=== PATIENT | male | born 1960 | race Caucasian/White ===

== ENCOUNTER 2021-08-28 05:51 | Inpatient (IN) | payer OTHER ==
[2021-08-28] VITALS (12 sets, daily range): BP systolic 94–139; BP diastolic 54–80
[~2021-08-28] VITALS: Ht 190.5 cm; Wt 116.3 kg
[2021-08-28] MEDS ORDERED: RINGERS SOLUTION,LACTATED 1,000 ML IV ONE ×3 (06:26→12:29)
[2021-08-28 06:41] LABS: COVID AG,FIA SOURCE NASOPHARYNGEAL
[2021-08-28 07:10] LABS: BASOPHILS % (AUTO) 1.3 % (0.0-2.0); EOSINOPHILS % (AUTO) 3.2 % (1.0-6.0); HEMATOCRIT 29.7 % (41-53); HEMOGLOBIN 9.6 g/dL (13.5-17.5); LYMPHOCYTES # (AUTO) 0.6 K/uL (1.0-4.8); LYMPHOCYTES % (AUTO) 12.4 % (22.0-44.0); MEAN CORPUSCULAR HEMOGLOBIN 25.6 pg (26.0-34.0); MEAN CORPUSCULAR HGB CONC 32.3 G/dL (31.0-37.0); MEAN CORPUSCULAR VOLUME 79 fL (80-100); MONOCYTES # (AUTO) 0.6 K/uL (0.1-1.0); NEUTROPHILS # (AUTO) 3.8 K/uL (1.8-7.7); NEUTROPHILS % (AUTO) 72.1 % (40.0-70.0); PLATELET COUNT (AUTO) 252 K/uL (150-450); RED BLOOD CELL COUNT(AUTO) 3.75 MIL/uL (4.50-5.90)
[2021-08-28 07:15] LABS: ANION GAP 6 mmol/L (8-16); CALCIUM, TOTAL 8.3 mg/dL (8.8-10.5); CARBON DIOXIDE 28 mmol/L (22-29); CHLORIDE 108 mmol/L (98-107); CREATININE 0.97 mg/dL (0.60-1.30); GLOMERULAR FILTR. RATE CALC > 60 mL/min (>60); GLUCOSE,RANDOM 111 mg/dL (70-110); POTASSIUM 3.9 mmol/L (3.5-5.1); SODIUM SERUM 142 mmol/L (136-145); UREA NITROGEN, BLOOD 13 mg/dL (7-18)
[2021-08-28 07:22] LABS: ALANINE AMINOTRANSFERASE 19 U/L (12-78); ALBUMIN 3.4 g/dL (3.4-5.0); ALKALINE PHOSPHATASE 43 U/L (46-116); ASPARTATE AMINOTRANSFERASE 12 U/L (15-37); BILIRUBIN,TOTAL 0.4 mg/dL (0.1-1.0); TOTAL PROTEIN, SERUM 6.8 g/dL (6.4-8.2)
[2021-08-28 07:23] LABS: PROTHROMBIN TIME 10.9 SEC (9.4-11.6)
[2021-08-28] MEDS ORDERED: SODIUM CHLORIDE 0.9% 500 ML IV ONE (07:48)
[2021-08-28] MEDS ORDERED: CeFAZolin 2 GM/DEXTROSE 50 ML IV ONE (09:30)
[2021-08-28] MEDS ORDERED: SORBITOL IRRIGATION 9,000 ML IRRIG ONE (10:24)
[2021-08-28] MEDS ORDERED: OPIUM/BELLADONNA ALK 60 MG-16.2 MG RECTAL SUPPOSITORY PR ONE (11:00)
[2021-08-28] MEDS ORDERED: HYDROCODONE/ACETAMINOPHEN 10-325 MG TABLET PO ONE (11:30)
[2021-08-28] MEDS ORDERED: HYDROmorphone 2 MG/ML VIAL IVP PRN ×2 (11:30→12:00)
[2021-08-28] MEDS ORDERED: SODIUM CL IRRIG SOLN BAG 6,000 ML IRRIG ONE (11:45)
[2021-08-28] MEDS ORDERED: MEPERIDINE-PF 25 MG/ML VIAL IVP PRN (12:00)
[2021-08-28] MEDS ORDERED: FentaNYL CITRATE PF 100 MCG/2 ML VIAL IVP PRN (12:00)
[2021-08-28 13:54] LABS: BASOPHILS % (AUTO) 0.3 % (0.0-2.0); EOSINOPHILS % (AUTO) 0.1 % (1.0-6.0); HEMATOCRIT 30.8 % (41-53); HEMOGLOBIN 9.8 g/dL (13.5-17.5); LYMPHOCYTES # (AUTO) 0.5 K/uL (1.0-4.8); MEAN CORPUSCULAR HGB CONC 31.7 G/dL (31.0-37.0); MEAN CORPUSCULAR VOLUME 82 fL (80-100); MONOCYTES # (AUTO) 0.8 K/uL (0.1-1.0); NEUTROPHILS # (AUTO) 12.4 K/uL (1.8-7.7); PLATELET COUNT (AUTO) 243 K/uL (150-450); RED BLOOD CELL COUNT(AUTO) 3.75 MIL/uL (4.50-5.90); RED CELL DISTRIBUTION WIDTH 16.2 % (11.5-14.5)
[2021-08-28 13:56] LABS: NEUTROPHILS % (AUTO) 89.6 % (40.0-70.0)
[2021-08-28 18:46] LABS: BASOPHILS % (AUTO) 0.3 % (0.0-2.0); EOSINOPHILS % (AUTO) 0.1 % (1.0-6.0); HEMATOCRIT 28.8 % (41-53); HEMOGLOBIN 9.2 g/dL (13.5-17.5); LYMPHOCYTES # (AUTO) 0.7 K/uL (1.0-4.8); LYMPHOCYTES % (AUTO) 4.4 % (22.0-44.0); MEAN CORPUSCULAR HGB CONC 32.1 G/dL (31.0-37.0); MEAN CORPUSCULAR VOLUME 81 fL (80-100); MONOCYTES # (AUTO) 1.1 K/uL (0.1-1.0); MONOCYTES % (AUTO) 7.6 % (2.0-9.0); NEUTROPHILS # (AUTO) 13.2 K/uL (1.8-7.7); PLATELET COUNT (AUTO) 239 K/uL (150-450); RED BLOOD CELL COUNT(AUTO) 3.55 MIL/uL (4.50-5.90); RED CELL DISTRIBUTION WIDTH 16.4 % (11.5-14.5)
[2021-08-28 19:04] LABS: NEUTROPHILS % (AUTO) 87.6 % (40.0-70.0)
[2021-08-28] MEDS: HYDROCODONE/ACETAMINOPHEN 10-325 MG TABLET PO PRN (19:28)
[2021-08-29 04:00] VITALS: BP 130/72
[2021-08-29] MEDS ORDERED: PROPOFOL 1% 20 ML VIAL IVP ONE (05:33)
[2021-08-29] MEDS ORDERED: HYDROmorphone 2 MG/ML VIAL IVP ONE (05:33)
[2021-08-29] MEDS ORDERED: ROCURONIUM BROMIDE 10 MG/ML 5 ML VIAL IVP ONE (05:33)
[2021-08-29] MEDS ORDERED: SUCCINYLCHOLINE CHLORIDE 20 MG/ML 10 ML VIAL IVP ONE (05:33)
[2021-08-29] MEDS ORDERED: MIDAZOLAM HCL 2 MG/2 ML VIAL IVP ONE (05:33)
[2021-08-29] MEDS ORDERED: FentaNYL CITRATE PF 100 MCG/2 ML VIAL IVP ONE (05:33)
[2021-08-29] MEDS ORDERED: LIDOCAINE/PF 2% 5 ML VIAL IM ONE (05:33)
[2021-08-29] MEDS ORDERED: ONDANSETRON HCL 4 MG/2 ML VIAL IVP ONE (05:33)
[2021-08-29 07:38] VITALS: BP 129/68
[2021-08-29] MEDS: OXYGEN THERAPY IH SCH ×2 (08:00→20:00)
[2021-08-29] MEDS: LISINOPRIL 5 MG TABLET PO SCH (08:22)
[2021-08-29 09:33] LABS: BASOPHILS % (AUTO) 0.6 % (0.0-2.0); EOSINOPHILS % (AUTO) 1.1 % (1.0-6.0); HEMATOCRIT 25.9 % (41-53); HEMOGLOBIN 8.5 g/dL (13.5-17.5); LYMPHOCYTES # (AUTO) 0.8 K/uL (1.0-4.8); LYMPHOCYTES % (AUTO) 7.5 % (22.0-44.0); MEAN CORPUSCULAR HEMOGLOBIN 26.6 pg (26.0-34.0); MEAN CORPUSCULAR HGB CONC 32.8 G/dL (31.0-37.0); MEAN CORPUSCULAR VOLUME 81 fL (80-100); MONOCYTES # (AUTO) 0.9 K/uL (0.1-1.0); MONOCYTES % (AUTO) 8.8 % (2.0-9.0); NEUTROPHILS # (AUTO) 8.5 K/uL (1.8-7.7); PLATELET COUNT (AUTO) 222 K/uL (150-450); RED CELL DISTRIBUTION WIDTH 16.4 % (11.5-14.5)
[2021-08-29 09:44] LABS: CREATININE 1.24 mg/dL (0.60-1.30); POTASSIUM 3.8 mmol/L (3.5-5.1)
[2021-08-29 19:48] VITALS: BP 144/70
[2021-08-29] MEDS: HYDROCODONE/ACETAMINOPHEN 10-325 MG TABLET PO PRN (20:36)
[2021-08-30 04:10] VITALS: BP 133/67
[2021-08-30] MEDS ORDERED: SODIUM CHLORIDE 0.9% IRRIG BTL 1,000 ML IRRIG ONE (07:01)
[2021-08-30 07:33] VITALS: BP 142/78
[2021-08-30] MEDS: OXYGEN THERAPY IH SCH (08:00)
[2021-08-30] MEDS: LISINOPRIL 5 MG TABLET PO SCH (08:20)
[2021-08-30 08:34] LABS: BASOPHILS % (AUTO) 0.6 % (0.0-2.0); EOSINOPHILS % (AUTO) 3.2 % (1.0-6.0); HEMOGLOBIN 7.9 g/dL (13.5-17.5); LYMPHOCYTES # (AUTO) 0.6 K/uL (1.0-4.8); LYMPHOCYTES % (AUTO) 7.1 % (22.0-44.0); MEAN CORPUSCULAR HEMOGLOBIN 25.8 pg (26.0-34.0); MEAN CORPUSCULAR HGB CONC 31.6 G/dL (31.0-37.0); MEAN CORPUSCULAR VOLUME 82 fL (80-100); MONOCYTES # (AUTO) 0.7 K/uL (0.1-1.0); MONOCYTES % (AUTO) 8.7 % (2.0-9.0); NEUTROPHILS # (AUTO) 6.9 K/uL (1.8-7.7); NEUTROPHILS % (AUTO) 80.4 % (40.0-70.0); PLATELET COUNT (AUTO) 200 K/uL (150-450); RED BLOOD CELL COUNT(AUTO) 3.05 MIL/uL (4.50-5.90); RED CELL DISTRIBUTION WIDTH 16.5 % (11.5-14.5)
[2021-08-30 08:44] LABS: ANION GAP 5 mmol/L (8-16); CALCIUM, TOTAL 7.8 mg/dL (8.8-10.5); CARBON DIOXIDE 29 mmol/L (22-29); CHLORIDE 110 mmol/L (98-107); CREATININE 0.95 mg/dL (0.60-1.30); GLOMERULAR FILTR. RATE CALC > 60 mL/min (>60); GLUCOSE,RANDOM 132 mg/dL (70-110); POTASSIUM 3.6 mmol/L (3.5-5.1); SODIUM SERUM 144 mmol/L (136-145); UREA NITROGEN, BLOOD 8 mg/dL (7-18)
[2021-08-30] MEDS ORDERED: DIATRIZOATE MEGLUMINE UR ONE (09:30)
[2021-08-30 15:13] VITALS: BP 138/74
[2021-08-30] MEDS: FAMOTIDINE 20 MG TABLET PO SCH (20:15)
[2021-08-30] MEDS: DOCUSATE SODIUM 100 MG CAPSULE PO SCH (20:15)
[2021-08-30] MEDS: HYDROCODONE/ACETAMINOPHEN 10-325 MG TABLET PO PRN (20:16)
[2021-08-30 20:26] VITALS: BP 147/68
[2021-08-31 05:14] VITALS: BP 141/80
[2021-08-31] MEDS: OXYGEN THERAPY IH SCH ×2 (08:00→21:11)
[2021-08-31] MEDS: FAMOTIDINE 20 MG TABLET PO SCH ×2 (08:43→21:12)
[2021-08-31] MEDS: LISINOPRIL 5 MG TABLET PO SCH (08:43)
[2021-08-31] MEDS: DOCUSATE SODIUM 100 MG CAPSULE PO SCH ×2 (08:43→21:00)
[2021-08-31 09:28] VITALS: BP 145/76
[2021-08-31 12:14] LABS: BASOPHILS % (AUTO) 0.8 % (0.0-2.0); EOSINOPHILS % (AUTO) 4.5 % (1.0-6.0); HEMATOCRIT 24.7 % (41-53); HEMOGLOBIN 7.9 g/dL (13.5-17.5); LYMPHOCYTES # (AUTO) 0.7 K/uL (1.0-4.8); LYMPHOCYTES % (AUTO) 8.4 % (22.0-44.0); MEAN CORPUSCULAR HEMOGLOBIN 26.3 pg (26.0-34.0); MEAN CORPUSCULAR HGB CONC 32.2 G/dL (31.0-37.0); MEAN CORPUSCULAR VOLUME 82 fL (80-100); MONOCYTES # (AUTO) 0.9 K/uL (0.1-1.0); MONOCYTES % (AUTO) 10.9 % (2.0-9.0); NEUTROPHILS # (AUTO) 6.4 K/uL (1.8-7.7); NEUTROPHILS % (AUTO) 75.4 % (40.0-70.0); PLATELET COUNT (AUTO) 221 K/uL (150-450); RED BLOOD CELL COUNT(AUTO) 3.02 MIL/uL (4.50-5.90); RED CELL DISTRIBUTION WIDTH 16.6 % (11.5-14.5)
[2021-08-31 16:30] VITALS: BP 172/79
[2021-08-31] MEDS ORDERED: ACETAMINOPHEN 325 MG TABLET PO PRN (19:00)
[2021-08-31 20:10] VITALS: BP 155/67
[2021-09-01 04:20] VITALS: BP 145/72
[2021-09-01] MEDS: OXYGEN THERAPY IH SCH ×2 (08:00→20:00)
[2021-09-01] MEDS: FAMOTIDINE 20 MG TABLET PO SCH ×2 (08:15→20:14)
[2021-09-01] MEDS: LISINOPRIL 5 MG TABLET PO SCH (08:15)
[2021-09-01] MEDS: DOCUSATE SODIUM 100 MG CAPSULE PO SCH ×2 (08:15→20:15)
[2021-09-01 08:18] VITALS: BP 151/79
[2021-09-01 16:31] VITALS: BP 151/74
[2021-09-01 19:30] VITALS: BP 139/74
[2021-09-02 04:00] VITALS: BP 141/76
[2021-09-02 07:54] VITALS: BP 158/74
[2021-09-02] MEDS: OXYGEN THERAPY IH SCH ×2 (08:00→20:00)
[2021-09-02] MEDS: FAMOTIDINE 20 MG TABLET PO SCH ×2 (08:29→19:56)
[2021-09-02] MEDS: LISINOPRIL 5 MG TABLET PO SCH (08:30)
[2021-09-02] MEDS: DOCUSATE SODIUM 100 MG CAPSULE PO SCH ×2 (08:30→21:00)
[2021-09-02 15:22] VITALS: BP 151/72
[2021-09-02 19:45] VITALS: BP 153/74
[2021-09-03 05:10] VITALS: BP 145/67
[2021-09-03 06:32] LABS: BASOPHILS % (AUTO) 0.7 % (0.0-2.0); EOSINOPHILS % (AUTO) 6.4 % (1.0-6.0); HEMATOCRIT 25.3 % (41-53); HEMOGLOBIN 8.2 g/dL (13.5-17.5); LYMPHOCYTES # (AUTO) 0.7 K/uL (1.0-4.8); MEAN CORPUSCULAR HEMOGLOBIN 25.9 pg (26.0-34.0); MEAN CORPUSCULAR HGB CONC 32.6 G/dL (31.0-37.0); MEAN CORPUSCULAR VOLUME 80 fL (80-100); MONOCYTES # (AUTO) 0.7 K/uL (0.1-1.0); MONOCYTES % (AUTO) 9.1 % (2.0-9.0); NEUTROPHILS # (AUTO) 6.1 K/uL (1.8-7.7); NEUTROPHILS % (AUTO) 74.8 % (40.0-70.0); PLATELET COUNT (AUTO) 240 K/uL (150-450); RED BLOOD CELL COUNT(AUTO) 3.18 MIL/uL (4.50-5.90); RED CELL DISTRIBUTION WIDTH 16.7 % (11.5-14.5)
[2021-09-03 06:46] LABS: ANION GAP 7 mmol/L (8-16); CARBON DIOXIDE 29 mmol/L (22-29); CHLORIDE 108 mmol/L (98-107); CREATININE 0.98 mg/dL (0.60-1.30); GLUCOSE,RANDOM 98 mg/dL (70-110); POTASSIUM 3.7 mmol/L (3.5-5.1); SODIUM SERUM 144 mmol/L (136-145); UREA NITROGEN, BLOOD 7 mg/dL (7-18)
[2021-09-03 06:47] LABS: CALCIUM, TOTAL 8.6 mg/dL (8.8-10.5); GLOMERULAR FILTR. RATE CALC > 60 mL/min (>60)
[2021-09-03 07:57] VITALS: BP 158/74
[2021-09-03] MEDS: OXYGEN THERAPY IH SCH ×2 (08:00→20:00)
[2021-09-03] MEDS: FAMOTIDINE 20 MG TABLET PO SCH ×2 (08:36→20:31)
[2021-09-03] MEDS: LISINOPRIL 5 MG TABLET PO SCH (08:36)
[2021-09-03] MEDS: DOCUSATE SODIUM 100 MG CAPSULE PO SCH ×3 (08:38→20:34)
[2021-09-03 19:42] VITALS: BP 153/78
[2021-09-04 04:19] VITALS: BP 156/80
[2021-09-04] MEDS: OXYGEN THERAPY IH SCH ×2 (08:00→20:57)
[2021-09-04 08:08] VITALS: BP 154/74
[2021-09-04] MEDS: FAMOTIDINE 20 MG TABLET PO SCH ×2 (08:20→20:57)
[2021-09-04] MEDS: DOCUSATE SODIUM 100 MG CAPSULE PO SCH ×3 (08:20→20:59)
[2021-09-04] MEDS: LISINOPRIL 5 MG TABLET PO SCH (08:20)
[2021-09-04 20:47] VITALS: BP 141/78
[2021-09-05 05:27] VITALS: BP 146/75
[2021-09-05 07:20] VITALS: BP 125/76
[2021-09-05] MEDS: OXYGEN THERAPY IH SCH (07:58)
[2021-09-05] MEDS: DOCUSATE SODIUM 100 MG CAPSULE PO SCH ×2 (08:00→20:46)
[2021-09-05] MEDS: LISINOPRIL 5 MG TABLET PO SCH (08:00)
[2021-09-05] MEDS: FAMOTIDINE 20 MG TABLET PO SCH ×2 (08:01→20:45)
[2021-09-05] MEDS ORDERED: SODIUM CHLORIDE 0.9% 250 ML IV ONE (14:25)
[2021-09-05 16:21] VITALS: BP 128/74
[2021-09-05 19:20] VITALS: BP 154/74
[2021-09-06 05:06] VITALS: BP 137/65
[2021-09-06] MEDS: OXYGEN THERAPY IH SCH (07:35)
[2021-09-06] MEDS: LISINOPRIL 5 MG TABLET PO SCH (08:05)
[2021-09-06] MEDS: FAMOTIDINE 20 MG TABLET PO SCH ×2 (08:05→20:28)
[2021-09-06] MEDS: DOCUSATE SODIUM 100 MG CAPSULE PO SCH ×2 (08:06→20:28)
[2021-09-06 08:08] VITALS: BP 148/78
[2021-09-06 20:00] VITALS: BP 150/73
[2021-09-07 05:02] VITALS: BP 119/52
[2021-09-07 07:32] VITALS: BP 145/87
[2021-09-07] MEDS: DOCUSATE SODIUM 100 MG CAPSULE PO SCH ×4 (07:51→20:45)
[2021-09-07] MEDS: FAMOTIDINE 20 MG TABLET PO SCH ×2 (07:51→19:51)
[2021-09-07] MEDS: LISINOPRIL 5 MG TABLET PO SCH (07:53)
[2021-09-07] MEDS: OXYGEN THERAPY IH SCH (07:55)
[2021-09-07 15:36] VITALS: BP 138/60
[2021-09-07 20:00] VITALS: BP 133/81
[2021-09-08 04:55] VITALS: BP 134/85
[2021-09-08] MEDS: OXYGEN THERAPY IH SCH ×2 (08:00→20:57)
[2021-09-08 08:01] VITALS: BP 130/84
[2021-09-08] MEDS: LISINOPRIL 5 MG TABLET PO SCH (09:31)
[2021-09-08] MEDS: FAMOTIDINE 20 MG TABLET PO SCH ×2 (09:31→21:13)
[2021-09-08 20:55] VITALS: BP 131/73
[2021-09-08] MEDS: DOCUSATE SODIUM 100 MG CAPSULE PO SCH (21:13)
[2021-09-09 05:25] VITALS: BP 157/92
[2021-09-09 07:43] VITALS: BP 169/94
[2021-09-09] MEDS: OXYGEN THERAPY IH SCH (08:00)
[2021-09-09] MEDS: LISINOPRIL 5 MG TABLET PO SCH (08:33)
[2021-09-09] MEDS: DOCUSATE SODIUM 100 MG CAPSULE PO SCH ×2 (08:34→20:17)
[2021-09-09] MEDS: FAMOTIDINE 20 MG TABLET PO SCH ×2 (08:34→20:16)
[2021-09-09 11:00] VITALS: BP 137/74
[2021-09-09] MEDS ORDERED: LISI-892 PO (18:03)
[2021-09-09 20:24] VITALS: BP 132/77
== END 2021-09-09 20:30 | DRG 670 ==
LOC: SURGERY 05:51 → 6S 05:52
PROVIDERS: ADMIT Urology; ATTEND Urology
PROC: 30233N1 Transfusion of Nonautologous Red Blood Cells into Peripheral Vein, Percutaneous Approach (ICD-10-PCS; 2021-08-28)
PROC: 0TBB8ZZ Excision of Bladder, Via Natural or Artificial Opening Endoscopic (ICD-10-PCS; principal; 2021-08-28 09:30)
PROC: BT101ZZ Fluoroscopy of Bladder using Low Osmolar Contrast (ICD-10-PCS; 2021-08-30)
DX: C67.9 Malignant neoplasm of bladder, unspecified (principal); Z20.822 Contact with and (suspected) exposure to COVID-19; R31.9 Hematuria, unspecified; E66.3 Overweight; D64.9 Anemia, unspecified; I10 Essential (primary) hypertension; Z87.891 Personal history of nicotine dependence; Z68.32 Body mass index [BMI] 32.0-32.9, adult
CPT/HCPCS: 74430; 76770; 80048; 80053; 85025; 85610; 85730; 86850; 86900; 86901; 86923; 87081; 88307; 88341; 88342; 93005; J0330; J0690; J1170; J2250; J2405; J2704; J3010; J3490; J7040; J7050; J7120; P9016; Q9958; 36415-L1; 36415-TC; C9803; Z7610